=== PATIENT | female | born 1965 | race Caucasian/White ===

== ENCOUNTER 2018-01-20 08:04 | Emergency (ER) | payer OTHER | END 2018-01-20 09:20 | disposition home or self-care (01) | LOC: FTE 08:04 | DX: J00 Acute nasopharyngitis [common cold] (principal); H61.21 Impacted cerumen, right ear; I10 Essential (primary) hypertension; E11.9 Type 2 diabetes mellitus without complications | CPT/HCPCS: 99283; Z7502 ==